=== PATIENT | female | born 1990 | race African-American/Black ===

== ENCOUNTER 2016-11-30 17:21 | Emergency (ER) | payer OTHER ==
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
[2016-11-30 18:09] VITALS: BP 113/71; PULSE 96; TEMP 98.2; BMI 31.8
[2016-11-30] MEDS ORDERED: KETOROLAC TROMETHAMINE 60 MG/2 ML VIAL ONE (20:04)
--- NOTE | 2016-12-05 20:25 | EKG ---
Test Reason : Blood Pressure : / mmHG Vent. Rate : 089 BPM Atrial Rate : 089 BPM P-R Int : 154 ms QRS Dur : 090 ms QT Int : 356 ms P-R-T Axes : 039 049 055 degrees QTc Int : 433 ms NORMAL SINUS RHYTHM ST ELEVATION, CONSIDER EARLY REPOLARIZATION WHEN COMPARED WITH ECG OF 19-JUN-2009 06:49, NO SIGNIFICANT CHANGE WAS FOUND REPEAT EKG IF CLINICALLY INDICATED Confirmed by ISIAH JORDAN MD ([id number]) on 12/05/2016 8:24:50 PM Referred By: Confirmed By:ISIAH JORDAN MD
== END 2016-11-30 20:24 | disposition home or self-care (01) ==
LOC: JER 17:21
DX: M54.2 Cervicalgia (principal); V43.62XA Car passenger injured in collision with other type car in traffic accident, initial encounter; Y92.488 Other paved roadways as the place of occurrence of the external cause; Y93.89 Activity, other specified; Y99.8 Other external cause status
CPT/HCPCS: 84703; 93005; 93010; 99281-25

== ENCOUNTER 2018-02-27 18:04 | Emergency (ER) | payer SELFPAY ==
--- NOTE | 2018-02-27 18:08 | PDOC ---
Rapid Medical Evaluation Medical Evaluation: Allergies Allergy/AdvReac Type Severity Reaction Status Date / Time Penicillins Allergy Mild Hives Verified 11/30/16 17:54 I have performed a brief in-person evaluation of this patient. The patient presents with a chief complaint of: C/O L ear pain since past weekend; recently had cold which is getting better but ear pain not improving; took Motrin today at 3 PM The patient will proceed to the ED for further evaluation. 02/27/18 18:06
[2018-02-27 18:09] VITALS: BP 121/67; PULSE 93; TEMP 98.5; BMI 36.3
--- NOTE | 2018-02-27 18:27 | PDOC ---
History of Present Illness - General Chief Complaint: Ear Problem Stated Complaint: EAR PROBLEM Time Seen by Provider: 02/27/18 18:23 History Source: Patient Exam Limitations: No Limitations - History of Present Illness Initial Comments: 02/27/18 18:26 cold symptoms nasal congestion for 3 days left ear pain started today. no fever Severity: mild Past History - Past Medical History Allergies/Adverse Reactions: Allergies Allergy/AdvReac Type Severity Reaction Status Date / Time Penicillins Allergy Mild Hives Verified 02/27/18 18:09 Home Medications: Ambulatory Orders Oxycodone HCl/Acetaminophen [Percocet 5-325 mg Tablet] 1 - 2 tab PO Q4H #20 tablet 01/10/12 Ibuprofen 800 mg PO TID #30 tablet 02/17/16 Oxycodone HCl/Acetaminophen [Percocet 5-325 mg Tablet] 1 - 2 tab PO Q6H #20 tablet MDD 4 02/17/16 COPD: No Thyroid Disease: No - Surgical History Lung Surgery: Yes (LEFT LUNG/WALKING PNEUMONIA) - Suicide/Smoking/Psychosocial Hx Smoking Status: No Smoking History: Never smoked Have you smoked in the past 12 months: No Number of Cigarettes Smoked Daily: 0 Information on smoking cessation initiated: No Hx Alcohol Use: No Drug/Substance Use Hx: No Substance Use Type: None *Physical Exam - Vital Signs Last Vital Signs Temp Pulse Resp BP Pulse Ox 98.5 F 93 H 17 121/67 99 02/27/18 18:07 02/27/18 18:07 02/27/18 18:07 02/27/18 18:07 02/27/18 18:07 - Physical Exam General Appearance: Yes: Nourished, Appropriately Dressed HEENT: positive: EOMI, GO, Nasal Congestion, Rhinorrhea (clear), Sinus Tenderness, Other (left ear with cerumen , TM intact mild fluid behind ear drum) . negative: TM Bulging, TM Dull Neck: positive: Supple Respiratory/Chest: positive: Lungs Clear, Normal Breath Sounds Cardiovascular: positive: Regular Rhythm, Regular Rate Moderate Sedation - Procedure Monitoring Vital Signs: Procedure Monitoring Vital Signs Temperature 98.5 F 02/27/18 18:07 Pulse Rate 93 H 02/27/18 18:07 Respiratory Rate 17 02/27/18 18:07 Blood Pressure 121/67 02/27/18 18:07 O2 Sat by Pulse Oximetry (%) 99 02/27/18 18:07 Medical Decision Making - Medical Decision Making 02/27/18 18:28 cc: URI cold symptoms dc home with supportive care all inst discussed verbally with pt who understands the plan of care *DC/Admit/Observation/Transfer Diagnosis at time of Disposition: Otalgia of left ear, Nasal sinus congestion - Discharge Dispostion Disposition: HOME Condition at time of disposition: Good - Referrals Referrals: Rich Ramos MD [Staff Physician] - - Patient Instructions Additional Instructions: get saline nasal spray and use 4 times daily to irrigate the sinuses take advil cold and sinus to help with sinus congestion follow with [facility] at [phone] for follow up - Post Discharge Activity
== END 2018-02-27 18:33 | disposition home or self-care (01) ==
LOC: JERFT 18:04
DX: J34.89 Other specified disorders of nose and nasal sinuses (principal); H92.02 Otalgia, left ear
CPT/HCPCS: 99281-25

== ENCOUNTER 2020-10-08 13:15 | Emergency (ER) | payer SELFPAY ==
[2020-10-08 13:27] VITALS: BMI 43.3
[2020-10-08] MEDS ORDERED: ASPIRIN 81 MG CHEWABLE TABLETS PO ONE (14:31)
[2020-10-08] MEDS ORDERED: SODIUM CHLORIDE 1,000 ML IV STA (14:31)
[2020-10-08] MEDS ORDERED: ASPIRIN 81 MG CHEWABLE TABLETS ONE (14:39)
[2020-10-08 15:08] LABS: BASO % 0.5 % (0-2.0); HEMATOCRIT 29.7 % (32.4-45.2); HEMOGLOBIN 8.9 GM/dL (10.7-15.3); MCH 18.7 pg (25.7-33.7); MEAN CELL VOLUME 62.5 fl (80-96); MEAN PLT VOLUME 8.5 fl (7.5-11.1); MONO % 7.2 % (3.8-10.2); NEUT % 64.3 % (42.8-82.8); PLATELET COUNT 382 10^3/uL (134-434); RBC 4.76 M/mm3 (3.60-5.2); RDW 19.6 % (11.6-15.6); WHITE BLOOD COUNT 4.9 K/mm3 (4.0-10.0)
[2020-10-08 15:14] LABS: INR 1.2 (0.83-1.09); PROTHROMBIN TIME (PATIENT) 14.7 SEC (9.7-13.0)
[2020-10-08 15:16] LABS: ACTIVATED PTT 27.6 SECONDS (25.2-36.5); CHLORIDE 102 mmol/L (98-107); SODIUM 139 mmol/L (136-145)
[2020-10-08 15:18] LABS: CALCIUM 8.5 mg/dL (8.5-10.1)
[2020-10-08 15:19] LABS: ALBUMIN 3.7 g/dl (3.4-5.0); ANION GAP 9 MMOL/L (8-16); BLOOD UREA NITROGEN 8.7 mg/dL (7-18); CO2 28 mmol/L (21-32); GLUCOSE,RANDOM 104 mg/dL (74-106); MAGNESIUM 1.9 mg/dL (1.8-2.4)
[2020-10-08 15:22] LABS: CREATININE 1.1 mg/dL (0.55-1.3); SGOT/AST 69 U/L (15-37); SGPT/ALT 38 U/L (13-61)
[2020-10-08 15:23] LABS: BILIRUBIN,TOTAL 0.3 mg/dL (0.2-1)
[2020-10-08 15:25] LABS: ALK PHOS 61 U/L (45-117)
[2020-10-08 15:33] LABS: ANISOCYTOSIS 3+; MACROCYTOSIS 0; PLATELET ESTIMATE NORMAL; TARGET CELLS 1+
[2020-10-08] MEDS ORDERED: ACETAMINOPHEN 500 MG TABLET (FP) PO ONE (15:33)
[2020-10-08] MEDS ORDERED: ACETAMINOPHEN 500 MG TABLET (FP) ONE (15:50)
[2020-10-08 17:38] VITALS: BP 120/64; PULSE 111; TEMP 98.9
== END 2020-10-08 18:08 | disposition home or self-care (01) ==
LOC: JER 13:15
PROC: 3E0337Z Introduction of Electrolytic and Water Balance Substance into Peripheral Vein, Percutaneous Approach (ICD-10-PCS; principal; 2020-10-08)
DX: U07.1 COVID-19 (principal)
CPT/HCPCS: 36415; 71046-TC-FY; 80053; 82550; 82553; 83735; 84484; 84703; 85025; 85610; 85730; 93005; 93010; 99285-25; C9803; U0003; U0005